=== PATIENT | female | born 1940 | race Caucasian/White ===

== ENCOUNTER 2017-07-30 10:21 | Day surgery (SDC) | payer MEDICARE ==
[~2017-07-30] VITALS: Ht 152.4 cm; Wt 116.4 kg
[2017-07-30 11:31] VITALS: BP 148/92
[2017-07-30] MEDS ORDERED: CHOL2000 PO (11:51)
[2017-07-30] MEDS ORDERED: ASPI-496 PO (11:51)
[2017-07-30] MEDS ORDERED: CARB1TAB43 PO (11:51)
[2017-07-30] MEDS ORDERED: GUAI1TBM11 PO (11:51)
[2017-07-30] MEDS ORDERED: SIMV40TA3 PO (11:51)
[2017-07-30] MEDS ORDERED: FLUT12HF3 IH (11:51)
[2017-07-30] MEDS ORDERED: ASPI-650 PO (11:51)
[2017-07-30] MEDS ORDERED: PRIM50TA PO (11:51)
[2017-07-30] MEDS ORDERED: IPRA4AER INH (11:51)
[2017-07-30] MEDS ORDERED: DABI150C PO (11:51)
[2017-07-30] MEDS ORDERED: GABA600T2 PO (11:51)
[2017-07-30] MEDS ORDERED: LANS15TA6 PO (11:51)
[2017-07-30] MEDS ORDERED: CALC1CAP8 PO (11:51)
[2017-07-30] MEDS ORDERED: METF500T4 PO (11:51)
[2017-07-30] MEDS ORDERED: FURO20TA3 PO (11:51)
[2017-07-30] MEDS ORDERED: SPIR50TA2 PO (11:51)
[2017-07-30] MEDS ORDERED: GABA800T2 PO (11:51)
[2017-07-30] MEDS ORDERED: MULT-6 PO (11:51)
[2017-07-30] MEDS ORDERED: DOCU-180 PO (11:51)
[2017-07-30] MEDS ORDERED: LIDO700A42 TP (11:51)
== END 2017-07-30 14:13 ==
LOC: CACL 10:21
PROVIDERS: ATTEND Internal Medicine Cardiovascular Disease
DX: I48.91 Unspecified atrial fibrillation (principal); I12.0 Hypertensive chronic kidney disease with stage 5 chronic kidney disease or end stage renal disease; E11.22 Type 2 diabetes mellitus with diabetic chronic kidney disease; N18.6 End stage renal disease; K21.9 Gastro-esophageal reflux disease without esophagitis; G20 Parkinson's disease; Z88.0 Allergy status to penicillin; Z88.8 Allergy status to other drugs, medicaments and biological substances; G47.33 Obstructive sleep apnea (adult) (pediatric); E78.2 Mixed hyperlipidemia; J44.9 Chronic obstructive pulmonary disease, unspecified; E66.9 Obesity, unspecified
CPT/HCPCS: 92960; 93005

== ENCOUNTER 2017-08-04 16:21 | Inpatient (IN) | payer MEDICARE ==
[~2017-08-04] VITALS: Ht 152.4 cm; Wt 119.1 kg
[~2017-08-04 16:21] MED LIST: ASPI-496 PO; ASPI-650 PO; CALC1CAP8 PO; CARB1TAB43 PO; CHOL2000 PO; DABI150C PO; DOCU-180 PO; FLUT12HF3 IH; FURO20TA3 PO; GABA600T2 PO; GABA800T2 PO; GUAI1TBM11 PO; IPRA4AER INH; LANS15TA6 PO; LIDO700A42 TP; METF500T4 PO; MULT-6 PO; PRIM50TA PO; SIMV40TA3 PO; SPIR50TA2 PO
[2017-08-04 17:22] LABS: BASOPHILS # (AUTO) 0.02 x10^3/uL (0-0.1); BASOPHILS % (AUTO) 0 % (0-1); EOSINOPHILS # (AUTO) 0.14 x10^3/uL (0-0.4); EOSINOPHILS % (AUTO) 1 % (1-7); LYMPHOCYTES # (AUTO) 2.32 x10^3/uL (1-3.4); LYMPHOCYTES % (AUTO) 15 % (22-44); MD NO; MEAN CORPUSCULAR HEMOGLOBIN 31.1 pg (27.0-34.8); MEAN CORPUSCULAR HGB CONC 33.2 g/dL (32.4-35.8); MEAN CORPUSCULAR VOLUME 93.5 fL (80-100); MEAN PLATELET VOLUME 11.2 fL (7.4-10.4); MONOCYTES % (AUTO) 8 % (2-9); NEUTROPHILS # (AUTO) 11.68 x10^3/uL (1.8-6.8); NEUTROPHILS % (AUTO) 76 % (42-75); PLATELET COUNT 241 x10^3/uL (130-400); RED BLOOD COUNT 4.27 x10^6/uL (3.82-5.3); RED CELL DISTRIBUTION WIDTH 13.4 % (9.6-15.2)
[2017-08-04 17:30] LABS: ALANINE AMINOTRANSFERASE 16 U/L (12-78); ALBUMIN 3.9 g/dL (3.4-5.0); ANION GAP 9 mmol/L (5-15); CALCIUM 8.9 mg/dL (8.5-10.1); CHLORIDE 103 mmol/L (98-107); CREATININE 1.22 mg/dL (0.55-1.02)
[2017-08-04 17:34] LABS: ALKALINE PHOSPHATASE 85 U/L (45-117); BILIRUBIN,TOTAL 0.5 mg/dL (0.2-1.0); TOTAL PROTEIN 7.7 g/dL (6.4-8.2); TROPONIN I < 0.015 ng/mL (0.000-0.045)
[2017-08-04 17:48] LABS: MICROSCOPIC NOT IND
[2017-08-04 17:52] LABS: CULTURE INDICATED? NO
[2017-08-04] MEDS ORDERED: SODIUM CHLORIDE 0.9%, 500ML IVBOLUS ONE (18:00)
[2017-08-04] MEDS ORDERED: SODIUM CHLORIDE 0.9% 1,000 ML IV SCH (19:36)
[2017-08-04] MEDS ORDERED: DEXTROSE 4 GM TAB.CHEW PO PRN (20:00)
[2017-08-04] MEDS ORDERED: hydrALAzine 20 MG/ML, 1ML IVPush PRN (20:00)
[2017-08-04] MEDS: LIDODERM 5% PATCH TD SCH (20:00)
[2017-08-04] MEDS ORDERED: DEXTROSE 50%, 50ML SYRINGE IVPush PRN (20:00)
[2017-08-04] MEDS ORDERED: ONDANSETRON 2MG/ML, 2ML IVPush PRN (20:00)
[2017-08-04] MEDS ORDERED: GLUCAGON 1 MG IM PRN (20:00)
[2017-08-04 20:22] VITALS: BP 116/64
[2017-08-04 20:27] VITALS: BP 147/80
[2017-08-04 20:33] VITALS: BP 144/86
[2017-08-04] MEDS: Advair Hfa 230-21 Mcg Inhaler IH SCH (21:00)
[2017-08-04] MEDS: ALBUTEROL SULFATE INH SCH (21:00)
[2017-08-04] MEDS: LANSOPRAZOLE 15 MG HOMEMEDPO SCH (21:00)
[2017-08-04] MEDS: INSULIN LISPRO 100 UNITS/ML, PEN SQ-INSULIN SCH (21:00)
[2017-08-04] MEDS: PRIMIDONE 50 MG TABLET PO SCH (21:00)
[2017-08-04] MEDS: IPRATROPIUM INH SCH (21:00)
[2017-08-04] MEDS: MUCINEX DM PO SCH (21:00)
[2017-08-04] MEDS ORDERED: ALBUTEROL/IPRATROPIUM 2.5MG/0.5MG, 3 ML ONE (21:11)
[2017-08-04] MEDS ORDERED: ALBUTEROL/IPRATROPIUM 2.5MG/0.5MG, 3 ML NPPB PRN (22:00)
[2017-08-04] MEDS: SODIUM CHLORIDE FLUSH 10ML SYR IVF SCH (22:49)
[2017-08-04] MEDS: SIMVASTATIN 40 MG TABLET PO SCH (22:49)
[2017-08-04] MEDS: DABIGATRAN 150 MG CAPSULE PO SCH (22:50)
[2017-08-04] MEDS: CARBIDOPA/LEVODOPA CR 25 MG/100 MG TABLET PO SCH (22:50)
[2017-08-04] MEDS: GABAPENTIN 300 MG CAPSULE PO SCH (22:50)
[2017-08-05] VITALS (7 sets, daily range): BP systolic 120–155; BP diastolic 70–82
[2017-08-05 05:27] LABS: ANION GAP 9 mmol/L (5-15); BASOPHILS # (AUTO) 0.04 x10^3/uL (0-0.1); BASOPHILS % (AUTO) 1 % (0-1); CALCIUM 8.9 mg/dL (8.5-10.1); CHLORIDE 106 mmol/L (98-107); CREATININE 1.05 mg/dL (0.55-1.02); EOSINOPHILS # (AUTO) 0.12 x10^3/uL (0-0.4); EOSINOPHILS % (AUTO) 1 % (1-7); LYMPHOCYTES # (AUTO) 1.85 x10^3/uL (1-3.4); LYMPHOCYTES % (AUTO) 20 % (22-44); MD NO; MEAN CORPUSCULAR HEMOGLOBIN 31.8 pg (27.0-34.8); MEAN CORPUSCULAR HGB CONC 34.1 g/dL (32.4-35.8); MEAN CORPUSCULAR VOLUME 93.4 fL (80-100); MEAN PLATELET VOLUME 10.6 fL (7.4-10.4); MONOCYTES # (AUTO) 1.07 x10^3/uL (0.2-0.8); MONOCYTES % (AUTO) 12 % (2-9); NEUTROPHILS # (AUTO) 6.26 x10^3/uL (1.8-6.8); NEUTROPHILS % (AUTO) 67 % (42-75); PLATELET COUNT 191 x10^3/uL (130-400); RED BLOOD COUNT 3.79 x10^6/uL (3.82-5.3); RED CELL DISTRIBUTION WIDTH 13.3 % (9.6-15.2)
[2017-08-05 05:39] LABS: THYROID STIMULATING HORMONE 0.729 mIU/L (0.358-3.740)
[2017-08-05] MEDS: INSULIN LISPRO 100 UNITS/ML, PEN SQ-INSULIN SCH ×4 (07:00→20:17)
[2017-08-05] MEDS: IPRATROPIUM INH SCH ×2 (09:00→20:18)
[2017-08-05] MEDS: ALBUTEROL/IPRATROPIUM 2.5MG/0.5MG, 3 ML NPPB SCH ×2 (09:00→20:30)
[2017-08-05] MEDS: Advair Hfa 230-21 Mcg Inhaler IH SCH ×2 (09:00→20:18)
[2017-08-05] MEDS: ALBUTEROL SULFATE INH SCH ×2 (09:00→20:18)
[2017-08-05] MEDS: LANSOPRAZOLE 15 MG HOMEMEDPO SCH ×2 (09:00→20:18)
[2017-08-05] MEDS: MUCINEX DM PO SCH ×2 (09:00→20:17)
[2017-08-05] MEDS: MULTIVITAMIN 1 TABLET PO SCH (09:53)
[2017-08-05] MEDS: LIDODERM 5% PATCH TD SCH ×2 (09:53→20:14)
[2017-08-05] MEDS: CARBIDOPA/LEVODOPA CR 25 MG/100 MG TABLET PO SCH ×3 (09:53→20:13)
[2017-08-05] MEDS: metFORMIN 500 MG TABLET PO SCH ×2 (09:53→20:13)
[2017-08-05] MEDS: PRIMIDONE 50 MG TABLET PO SCH ×3 (09:53→20:17)
[2017-08-05] MEDS: SODIUM CHLORIDE FLUSH 10ML SYR IVF SCH ×2 (09:54→20:12)
[2017-08-05] MEDS: LACTOBACILLUS CHEW TABLET PO SCH ×3 (09:54→20:12)
[2017-08-05] MEDS: DABIGATRAN 150 MG CAPSULE PO SCH (09:54)
[2017-08-05] MEDS: GABAPENTIN 300 MG CAPSULE PO SCH ×3 (09:54→20:12)
[2017-08-05] MEDS: ACETAMINOPHEN 325 MG TABLET PO PRN (12:12)
[2017-08-05] MEDS ORDERED: VANCOMYCIN PMX 1GM/200ML 200 ML IVPB SCH (15:00)
[2017-08-05] MEDS: SODIUM CHLORIDE 0.9% 1,000 ML IV SCH ×2 (15:47→23:08)
[2017-08-05] MEDS ORDERED: DIPHENHYDRAMINE 25 MG CAPSULE PO PRN (17:00)
[2017-08-05] MEDS: SIMVASTATIN 40 MG TABLET PO SCH (20:13)
[2017-08-06 03:04] VITALS: BP 130/73
[2017-08-06] MEDS: SODIUM CHLORIDE 0.9% 1,000 ML IV SCH (06:27)
[2017-08-06] MEDS: INSULIN LISPRO 100 UNITS/ML, PEN SQ-INSULIN SCH ×4 (07:48→20:59)
[2017-08-06] MEDS: LACTOBACILLUS CHEW TABLET PO SCH ×3 (07:48→20:34)
[2017-08-06] MEDS: MUCINEX DM PO SCH ×2 (07:49→20:32)
[2017-08-06] MEDS: MULTIVITAMIN 1 TABLET PO SCH (07:49)
[2017-08-06] MEDS: CARBIDOPA/LEVODOPA CR 25 MG/100 MG TABLET PO SCH ×3 (07:49→20:35)
[2017-08-06] MEDS: PRIMIDONE 50 MG TABLET PO SCH ×3 (07:49→20:34)
[2017-08-06] MEDS: GABAPENTIN 300 MG CAPSULE PO SCH ×3 (07:49→20:34)
[2017-08-06] MEDS: SODIUM CHLORIDE FLUSH 10ML SYR IVF SCH ×3 (07:49→20:32)
[2017-08-06] MEDS: LIDODERM 5% PATCH TD SCH ×2 (07:50→20:31)
[2017-08-06] MEDS: Advair Hfa 230-21 Mcg Inhaler IH SCH ×2 (07:50→20:31)
[2017-08-06] MEDS: LANSOPRAZOLE 15 MG HOMEMEDPO SCH ×2 (07:50→20:31)
[2017-08-06] MEDS: IPRATROPIUM INH SCH ×2 (07:50→20:31)
[2017-08-06] MEDS: ALBUTEROL SULFATE INH SCH ×2 (07:50→20:31)
[2017-08-06] MEDS ORDERED: FENTANYL PF 100 MCG/2ML ONE ×2 (08:52→09:27)
[2017-08-06] MEDS ORDERED: VANCOMYCIN 500 MG ONE (08:52)
[2017-08-06] MEDS ORDERED: MIDAZOLAM 1 MG/ML, 5ML ONE ×2 (08:52→09:26)
[2017-08-06] MEDS ORDERED: LIDOCAINE 2%, 10ML ONE ×2 (08:52→09:27)
[2017-08-06] MEDS ORDERED: VANCOMYCIN PMX 1GM/200ML 200 ML ONE (08:52)
[2017-08-06] MEDS: ALBUTEROL/IPRATROPIUM 2.5MG/0.5MG, 3 ML NPPB SCH ×2 (09:00→20:38)
[2017-08-06] MEDS ORDERED: BUPIVACAINE 0.25% ONE (09:27)
[2017-08-06] MEDS ORDERED: CEFAZOLIN PMX 1GM/50ML 0 ML ONE (09:27)
[2017-08-06] MEDS ORDERED: CEFAZOLIN 1,000 MG ONE (09:27)
[2017-08-06] MEDS ORDERED: DIPHENHYDRAMINE 50 MG/ML, 1ML ONE (09:28)
[2017-08-06] MEDS ORDERED: ACETAMINOPHEN 325 MG TABLET PO PRN (10:30)
[2017-08-06 10:51] VITALS: BP 135/86
[2017-08-06] MEDS: HYDROcodone/APAP 5/325 TABLET PO PRN ×2 (11:11→20:36)
[2017-08-06 13:09] VITALS: BP 132/70
[2017-08-06] MEDS: ACETAMINOPHEN 325 MG TABLET PO PRN (14:38)
[2017-08-06] MEDS ORDERED: SODIUM CHLORIDE 0.9% 1,000 ML IV SCH (14:52)
[2017-08-06] MEDS: METOPROLOL SUCCINATE 25 MG TAB.ER.24H PO SCH (15:41)
[2017-08-06 18:44] VITALS: BP 131/77
[2017-08-06] MEDS: SIMVASTATIN 40 MG TABLET PO SCH (20:35)
[2017-08-06] MEDS ORDERED: VANCOMYCIN PMX 1GM/200ML 200 ML IVPB ONE (21:00)
[2017-08-06] MEDS ORDERED: metFORMIN 500 MG TABLET PO SCH (21:00)
[2017-08-07 02:20] VITALS: BP 130/81
[2017-08-07] MEDS: METOPROLOL SUCCINATE 25 MG TAB.ER.24H PO SCH (05:32)
[2017-08-07] MEDS: HYDROcodone/APAP 5/325 TABLET PO PRN ×2 (07:22→12:11)
[2017-08-07] MEDS: INSULIN LISPRO 100 UNITS/ML, PEN SQ-INSULIN SCH ×3 (07:30→15:58)
[2017-08-07] MEDS: SODIUM CHLORIDE FLUSH 10ML SYR IVF SCH ×2 (07:38→07:40)
[2017-08-07] MEDS: CARBIDOPA/LEVODOPA CR 25 MG/100 MG TABLET PO SCH ×2 (07:39→15:31)
[2017-08-07] MEDS: LIDODERM 5% PATCH TD SCH ×2 (07:39→07:50)
[2017-08-07] MEDS: LACTOBACILLUS CHEW TABLET PO SCH ×2 (07:39→15:32)
[2017-08-07] MEDS: MULTIVITAMIN 1 TABLET PO SCH (07:39)
[2017-08-07] MEDS: GABAPENTIN 300 MG CAPSULE PO SCH ×2 (07:39→15:32)
[2017-08-07] MEDS: PRIMIDONE 50 MG TABLET PO SCH ×2 (07:39→15:32)
[2017-08-07] MEDS: LANSOPRAZOLE 15 MG HOMEMEDPO SCH (07:40)
[2017-08-07] MEDS: ALBUTEROL SULFATE INH SCH (07:40)
[2017-08-07] MEDS: MUCINEX DM PO SCH (07:40)
[2017-08-07] MEDS: Advair Hfa 230-21 Mcg Inhaler IH SCH (07:40)
[2017-08-07] MEDS: IPRATROPIUM INH SCH (07:40)
[2017-08-07 08:09] VITALS: BP 132/82
[2017-08-07] MEDS: ALBUTEROL/IPRATROPIUM 2.5MG/0.5MG, 3 ML NPPB SCH (08:30)
[2017-08-07] MEDS ORDERED: ACET325T14 PO ×2 (12:03→15:21)
[2017-08-07] MEDS ORDERED: ACID1TAB7 PO (12:03)
[2017-08-07] MEDS ORDERED: METO25TA91 PO (12:03)
[2017-08-07 13:29] VITALS: BP 145/80
[2017-08-07] MEDS: ACETAMINOPHEN 325 MG TABLET PO PRN (15:32)
[2017-08-07] MEDS ORDERED: DABIGATRAN 150 MG CAPSULE PO SCH (21:00)
== END 2017-08-07 17:23 | disposition home or self-care (01) | DRG 242 ==
LOC: ED 18:10 → EDIP 18:36 → INTOOBSV 18:36 → 4WST 20:17 → OBSVTOIN 08-05 13:57 → 5SO 08-05 15:32
PROVIDERS: ADMIT Internal Medicine; ATTEND Internal Medicine
PROC: 0JH606Z Insertion of Pacemaker, Dual Chamber into Chest Subcutaneous Tissue and Fascia, Open Approach (ICD-10-PCS; principal; 2017-08-06)
PROC: 02H63JZ Insertion of Pacemaker Lead into Right Atrium, Percutaneous Approach (ICD-10-PCS; 2017-08-06)
PROC: 02HK3JZ Insertion of Pacemaker Lead into Right Ventricle, Percutaneous Approach (ICD-10-PCS; 2017-08-06)
DX: I49.5 Sick sinus syndrome (principal); E43 Unspecified severe protein-calorie malnutrition; D68.69 Other thrombophilia; E11.22 Type 2 diabetes mellitus with diabetic chronic kidney disease; E66.01 Morbid (severe) obesity due to excess calories; G20 Parkinson's disease; I48.0 Paroxysmal atrial fibrillation; Z68.43 Body mass index [BMI] 50.0-59.9, adult; E86.0 Dehydration; G47.33 Obstructive sleep apnea (adult) (pediatric); E78.5 Hyperlipidemia, unspecified; I12.9 Hypertensive chronic kidney disease with stage 1 through stage 4 chronic kidney disease, or unspecified chronic kidney disease; J44.9 Chronic obstructive pulmonary disease, unspecified; Z96.651 Presence of right artificial knee joint; Z87.891 Personal history of nicotine dependence; Z82.49 Family history of ischemic heart disease and other diseases of the circulatory system; Z79.01 Long term (current) use of anticoagulants; N18.2 Chronic kidney disease, stage 2 (mild); K21.9 Gastro-esophageal reflux disease without esophagitis; Z88.1 Allergy status to other antibiotic agents; Z88.0 Allergy status to penicillin
CPT/HCPCS: 33208; 36415; 71045; 80048; 80053; 81003; 82962; 83735; 84100; 84443; 84484; 85025; 93005; 93306; 94640; 94660; 99156; 99285; C1779; C1785; C1892; G0378; J0690; J2250; J3010; J3370; J3490; J7620; J1200; J7030; J7040; Q0163